=== PATIENT | female | born 2005 | race Caucasian/White ===

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

== ENCOUNTER → 2023-12-23 | Outpatient (CLI) | payer BC ==
--- NOTE | 2023-12-23 14:10 | XR ---
EXAMINATION TYPE: XR cervical spine comp DATE OF EXAM: 12/23/2023 2:03 PM CLINICAL INDICATION: Female, 18 years old with history of M54.2 CERVICALGIA; [facility] COMPARISON: 07/14/2005 TECHNIQUE: The cervical spine was imaged in frontal, lateral, odontoid and bilateral oblique. FINDINGS: The osseous structures show normal alignment without evidence of an acute fracture. Minimal degenerat ion throughout the spine with osteophyte formation and facet and uncovertebral joint arthropathy. The intervertebral disk spaces are preserved. Pedicles are intact. Soft tissues are within normal limit s. The odontoid appears intact. IMPRESSION: 1. No fracture or dislocation. 2. Minimal degenerative disc disease changes of the cervical spine. [facility], , 12/23/2023 2:08 PM
== END | disposition home or self-care (01) ==
LOC: RADXRMAIN 13:40
PROVIDERS: ATTEND Nurse Practitioner Family
DX: M50.30 Other cervical disc degeneration, unspecified cervical region (principal)
CPT/HCPCS: 72050